=== PATIENT | male | born 1990 | race Caucasian/White ===

== ENCOUNTER 2016-12-15 07:02 | Day surgery (SDC) | payer MEDICAID ==
[~2016-12-15] VITALS: Ht 188 cm; Wt 104.3 kg
[~2016-12-15 07:02] MED LIST: AUGMENTIN 875-11 TAB PO; MUPIROCIN22 GM TOPICAL; PEPCID40 MG PO
[2016-12-15 07:39] VITALS: BP 130/72; Ht 188 cm; Wt 104.3 kg
--- NOTE | 2016-12-15 10:01 | NUR ---
0930: NO FAMILY PRESENT PER PATIENT PRIOR TO SURGERY
[2016-12-15] MEDS ORDERED: HYDROCODONE-APA1 TAB PO (10:31)
--- NOTE | 2016-12-15 12:17 | NUR ---
IV DC WITH CATHER TIP INTACT,UP TO BATHROOM VOIDED
--- NOTE | 2017-01-02 12:19 | OP ---
PATIENT NAME: GRICEL ANTONIO MEDICAL RECORD: [id number] :88 LOCATION:[facility] ADMISSION DATE: SURGEON: MARYLIN SONG MD DATE OF OPERATION: 12/15/2016 PREOPERATIVE DIAGNOSIS: Left knee pain, no distinct tears. 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 PROCEDURE PERFORMED: Small partial medial meniscectomy. SURGEON: Rubén Song MD ANESTHESIA: General. CONDITION: He tolerated the procedure well, was transferred to the recovery room in stable condition at termination of the procedure. INDICATIONS: This is a 26-year-old male that has been having ongoing pain without resolution. He has just not gotten any better. With this continuing to bother him, we did discuss options with him. He understood that we are going to do the arthroscope to see if we could help resolve this pain. Discussed risks, benefits, alternatives and wished to proceed. OPERATIVE REPORT: The patient was taken to the operating room and placed in supine position. General anesthesia was obtained. Left knee was confirmed to be the correct knee. It was prepped and draped in the normal fashion. After this was accomplished, the portal sites were marked and injected with 0.25% Marcaine with epinephrine. The scope was then placed in the anterolateral portal for the inflow. The outflow was established superomedially. This was verified to be in position. I did check this with the scope, then checked the patellofemoral joint where there were no significant lesions. Dropping down the medial gutter into the medial joint, the medial joint overall looked very good. He did have some fissuring especially towards the notch area of the cartilage on the medial tibial plateau, but really no cartilage coming off, felt overall spongy and good with the probe. I had established an anteromedial portal under direct visualization. Moving to the notch, his ACL and PCL were notably intact. Going to the lateral side, he again had some fissuring and some grade I-II chondromalacia of lateral femoral condyle and lateral tibial plateau, but no exposed bone and no areas where there was any cartilage coming off. This still felt relatively spongy and good as far as with the probe. Minimal fraying at the edge of the lateral meniscus, but certainly no tear. Going back to the medial side, he had a small, what appeared to be a small root medial meniscus tear which I did debride, but overall other than the grade I-II chondromalacia and changes, I did not see anything else that I would consider significant. I therefore did a small medial meniscectomy and then brought the case to a close. He was closed with 3-0 Prolene day, injected with 10 cc Duramorph with 3-4 cc of Marcaine plain. He was awakened and transferred to recovery room in stable condition, having tolerated procedure well. TRANSINT:[id number] Voice Confirmation ID: [id number] DOCUMENT ID: [id number] OPERATIVE REPORT [id number] GRICEL ANTONIO, MARYLIN GÓMEZ MD at 1219 CC: [id number] DICTATION DATE: 12/15/16 1036 [facility]: 12/15/16 1159 [facility] 12/15/16 [id number] [place] [id number]
== END 2016-12-15 12:45 | disposition home or self-care (01) ==
LOC: D.OPS 07:02 → D.PAN 12:30 → D.OPS 12:30
DX: S83.242A Other tear of medial meniscus, current injury, left knee, initial encounter (principal); M94.262 Chondromalacia, left knee